=== PATIENT | female | born 1980 | race Asian ===

== ENCOUNTER 2020-08-22 08:48 | Outpatient (CLI) | payer OTHER | END 2020-08-22 19:03 | disposition home or self-care (01) | LOC: MRI 08:48 → EDSEX 08:48 → MRI 09:00 | PROVIDERS: ATTEND Orthopaedic Surgery | DX: M25.532 Pain in left wrist (principal); M65.4 Radial styloid tenosynovitis [de Quervain]; M67.432 Ganglion, left wrist | CPT/HCPCS: A9576 ==

== ENCOUNTER 2020-10-19 11:37 | Emergency (ER) | payer OTHER ==
[~2020-10-19] VITALS: Ht 162.6 cm; Wt 140.6 kg
[2020-10-19 12:36] LABS: PLATELET COUNT 235 K/uL (152-353)
[2020-10-19 12:48] LABS: POTASSIUM 3.7 mmol/L (3.6-5.2)
[2020-10-19 13:40] VITALS: BP 128/78; TEMP 98.7
== END 2020-10-19 13:40 | disposition home or self-care (01) ==
LOC: ED 11:37
PROVIDERS: Hospitalist
DX: R19.7 Diarrhea, unspecified (principal); R11.2 Nausea with vomiting, unspecified
CPT/HCPCS: 80053; 81000; 81025; 83690; 85027; 96360; 96375; 99284

== ENCOUNTER 2020-12-17 22:07 | Emergency (ER) | payer OTHER ==
[~2020-12-17] VITALS: Ht 162.6 cm; Wt 142.9 kg
[2020-12-17 23:04] VITALS: BP 150/93; TEMP 98.4
== END 2020-12-17 23:08 | disposition home or self-care (01) ==
LOC: ED 22:07
DX: J32.8 Other chronic sinusitis (principal)
CPT/HCPCS: 96372; 99283; J0696; J1885